=== PATIENT | male | born 1995 | race Caucasian/White ===

== ENCOUNTER 2018-12-26 03:42 | Emergency (ER) | payer BC ==
--- NOTE | 2018-12-26 04:16 | ED ---
GI/ HPI - HPI Summary HPI Summary: Pt Is a 23 y/o M presenting to the ED with a chief complaint of R testicular pain initially onset about 2 days ago. He states the pain has been increasingly worse and he has been experiencing frequent urination as well as R leg pain. He reports pain, edema, and erythema to the R testicle. He denies penile discharge , dysuria, risky sexual behavior, or trauma to the testicle. - History of Current Complaint Chief Complaint: EDUrogenitalProblems Time Seen by Provider: 12/26/18 04:05 Stated Complaint: TESTICULAR PAIN PER PT Hx Obtained From: Patient Onset/Duration: Started Days Ago, Still Present Timing: Constant, Lasting Days Severity: Mild Current Severity: Mild Pain Intensity: 3 Additional Locations for Males: Testicles - right Pain Characteristics: Aching Associated Signs and Symptoms: Positive: UTI Symptoms - frequent urination. Negative: Dysuria Additional Signs & Symptoms: Negative: Penile Discharge, STD Aggravating Factor(s): Nothing Alleviating Factor(s): Nothing - Allergy/Home Medications Allergies/Adverse Reactions: Allergies Allergy/AdvReac Type Severity Reaction Status Date / Time No Known Allergies Allergy Verified 12/26/18 03:47 Home Medications: Home Medications NK [No Home Medications Reported] 12/26/18 [History Confirmed 12/26/18] PMH/Surg Hx/FS Hx/Imm Hx Previously Healthy: Yes Endocrine/Hematology History: Denies: Hx Diabetes Cardiovascular History: Denies: Hx Hypertension Infectious Disease History: No Infectious Disease History: Denies: Traveled Outside the [place] in Last 30 Days - Family History Known Family History: Negative: Diabetes - Social History Occupation: Student Alcohol Use: None Hx Substance Use: Yes Substance Use Type: Reports: Marijuana Hx Tobacco Use: No Smoking Status (MU): Never Smoked Tobacco Review of Systems Positive: frequency, pain - testicular. Negative: dysuria, discharge - penile Positive: Myalgia - R leg, Edema - R testicle All Other Systems Reviewed And Are Negative: Yes Physical Exam - Summary Physical Exam Summary: Constitutional: Well-developed, Well-nourished, Alert. (-) Distressed Skin: Warm, Dry HENT: Normocephalic; Atraumatic Eyes: Conjunctiva normal Neck: Musculoskeletal ROM normal neck. (-) JVD, (-) Stridor, (-) Tracheal deviation Cardio: Rhythm regular, rate normal, Heart sounds normal; Intact distal pulses; Radial pulses are 2+ and symmetric. (-) Murmur Pulmonary/Chest wall: Effort normal. (-) Respiratory distress, (-) Wheezes, (-) Rales Abd: Soft, (-) tenderness, (-) Distension, (-) Guarding, (-) Rebound Musculoskeletal: (-) Edema Lymph: (-) Cervical adenopathy Neuro: Alert, Oriented x3 Psych: Mood and affect Normal : R testicle is erythematous, edematous, high-riding compared to the left. No obvious cremasteric reflex present. No tenderness. Triage Information Reviewed: Yes Vital Signs On Initial Exam: Initial Vitals Temp Pulse Resp BP Pulse Ox 97.2 F 58 16 158/95 98 12/26/18 03:43 12/26/18 03:43 12/26/18 03:43 12/26/18 03:43 12/26/18 03:43 Vital Signs Reviewed: Yes Procedures - Sedation Patient Received Moderate/Deep Sedation with Procedure: No Diagnostics - Vital Signs Vital Signs Temp Pulse Resp BP Pulse Ox 12/26/18 03:43 97.2 F 58 16 158/95 98 - Laboratory Result Diagrams: 12/26/18 04:22 12/26/18 04:22 Lab Statement: Any lab studies that have been ordered have been reviewed, and results considered in the medical decision making process. - Ultrasound Testicular US Ultrasound Interpretation Completed By: Radiologist Summary of Ultrasound Findings: No significant pathology. No evidence of testicular mass nor torsion. Small left epididymal cyst (4 mm avg. size). ED physician has reviewed this report. GIGU Course/Dx - Course Course Of Treatment: Patient is here with pain in his right testicle. Patient had an old shunt performed which showed no evidence of torsion. Patient is not at risk for STDs per his history. Patient had a negative UA. Patient later stated that he's been using new mastbitory techniques starting 5 days ago which coincides with the symptom onset. Patient was encouraged not to take the medicine. - Diagnoses Provider Diagnoses: Testicular pain Discharge ED - Sign-Out/Discharge Documenting (check all that apply): Patient Departure - Discharge Plan Condition: Stable Disposition: HOME Patient Education Materials: Testicle Pain (ED) Referrals: [facility] - Kenny KIMBROUGH [Z.BUSINESS, APPLICATION, OTHER] - Additional Instructions: Follow up with [facility] in 1-3 days. We'll call you if your chlamydia and gonorrhea tests are positive. Come back to the emergency department with any new or worsening symptoms. - Billing Disposition and Condition Condition: STABLE Disposition: Home - Attestation Statements Document Initiated by Laura: Yes Documenting Scribe: Breanna Mi Provider For Whom Laura is Documenting (Include Credential): Venkat Spencer MD. Scribe Attestation: Breanna Hidalgo, scribed for Venkat Spencer MD. on 12/26/18 at 0613. Scribe Documentation Reviewed: Yes Provider Attestation: The documentation as recorded by the Breanna barroso accurately reflects the service I personally performed and the decisions made by Venkat hurtado MD. Status of Scribe Document: Viewed
[2018-12-26 04:30] LABS: ABS Basophils 0.1 10^3/ul (0-0.2); ABS Eosinophils 0.2 10^3/ul (0-0.6); ABS Lymphocytes 2.1 10^3/ul (1.0-4.8); ABS Monocytes 0.7 10^3/ul (0-0.8); ABS Neutrophils 3.4 10^3/ul (1.5-7.7); Eosinophil % 2.4 %; Hematocrit 43 % (42-52); Hemoglobin 14.6 g/dL (14.0-18.0); Lymphocyte % 32.8 %; Mean Corpuscular HGB Conc 34 g/dL (31-36); Mean Corpuscular Hemoglobin 30 pg (27-31); Mean Corpuscular Volume 87 fL (80-94); Mean Platelet Volume 8.2 fL (7.4-10.4); Nucleated Red Blood Cells % 0.1; Platelet Count 218 10^3/uL (150-450); Red Blood Count 4.89 10^6 /uL (4.18-5.48); Red Cell Distribution Width 12 % (10-15); White Blood Count 6.4 10^3/uL (3.5-10.8)
[2018-12-26 04:31] LABS: Urine Appearance Clear; Urine Bilirubin Negative (Negative); Urine Blood Negative (Negative); Urine Color Colorless; Urine Glucose Negative (Negative); Urine Ketones Negative (Negative); Urine Nitrite Negative (Negative); Urine Protein Negative (Negative); Urine Specific Gravity 1.004 (1.010-1.030); Urine Urobilinogen Negative (Negative)
[2018-12-26 04:44] LABS: Albumin 4.5 g/dL (3.2-5.2); Albumin/Globulin Ratio 1.7 (1-3); BUN/Creatinine Ratio 18.3 (8-20); Calcium 9.7 mg/dL (8.6-10.3); EGFR African American 95.4 (>60); EGFR Non-African American 78.8 (>60); Globulin 2.6 g/dL (2-4); Potassium 3.9 mmol/L (3.5-5.0); Total Bilirubin 0.6 mg/dL (0.2-1.0); Total Protein 7.1 g/dL (6.4-8.9)
[2018-12-26 05:52] VITALS: BP 143/82
[2018-12-26 14:51] LABS: Chlamydia trachomatis NAA Negative (Negative); Neisseria gonorrhoeae (GC) NAA Negative (Negative)
== END 2018-12-26 05:48 | disposition home or self-care (01) ==
LOC: ED 03:42
DX: N50.811 Right testicular pain (principal); N50.3 Cyst of epididymis
CPT/HCPCS: 36415; 76870; 80053; 81003; 85025; 87491; 87591; 99282